=== PATIENT | male | born 1985 | race Caucasian/White ===

== ENCOUNTER 2020-11-30 07:44 | Emergency (ER) | payer OTHER ==
[2020-11-30 07:48] VITALS: BP 109/66; PULSE 60; BMI 28.3
[2020-11-30 07:49] VITALS: TEMP 98
== END 2020-11-30 08:06 | disposition home or self-care (01) ==
LOC: JER 07:44
DX: H10.32 Unspecified acute conjunctivitis, left eye (principal)
CPT/HCPCS: 99283-25

== ENCOUNTER 2022-03-08 14:48 | Emergency (ER) | payer OTHER ==
[2022-03-08 15:02] VITALS: BP 119/75; PULSE 77; TEMP 98.1; BMI 28.9
[2022-03-08] MEDS ORDERED: MAG HYDROX/AL HYDROX/SIMETH 30 ML UNIT-DOSE CUP PO ONE (16:56)
[2022-03-08] MEDS ORDERED: FAMOTIDINE 20 MG TABLET PO ONE (16:56)
[2022-03-08] MEDS ORDERED: PANTOPRAZOLE SODIUM 40 MG VIAL IVPUSH ONE (16:56)
[2022-03-08] MEDS ORDERED: MAG HYDROX/AL HYDROX/SIMETH 30 ML UNIT-DOSE CUP ONE (18:14)
[2022-03-08] MEDS ORDERED: PANTOPRAZOLE SODIUM 40 MG/100 ML BAG IVPB ONE (18:14)
[2022-03-08] MEDS ORDERED: FAMOTIDINE 20 MG TABLET ONE (18:14)
[2022-03-08 18:18] LABS: BASO % 0.6 % (0-2.0); HEMATOCRIT 43.2 % (35.4-49); HEMOGLOBIN 14.5 GM/dL (11.7-16.9); LYMPH % 37.8 % (8-40); MCH 31.9 pg (25.7-33.7); MCHC 33.5 g/dl (32.0-35.9); MEAN CELL VOLUME 95.2 fl (80-96); MEAN PLT VOLUME 8.1 fl (7.5-11.1); MONO % 9.9 % (3.8-10.2); NEUT % 48.7 % (42.8-82.8); PLATELET COUNT 265 10^3/uL (134-434); RBC 4.54 M/mm3 (4.00-5.60); RDW 13.5 % (11.9-15.9)
[2022-03-08 18:24] LABS: INR 1.02 (0.83-1.09); PROTHROMBIN TIME (PATIENT) 11.7 SEC (9.7-13.0)
[2022-03-08 18:41] LABS: ALBUMIN 4.3 g/dl (3.4-5.0); BLOOD UREA NITROGEN 21.1 mg/dL (7-18); CALCIUM 9.3 mg/dL (8.5-10.1)
[2022-03-08 18:46] LABS: BILIRUBIN,TOTAL 0.7 mg/dL (0.2-1); TOT PROT 7.8 g/dl (6.4-8.2)
== END 2022-03-08 20:21 | disposition home or self-care (01) ==
LOC: JER 14:48
PROC: 3E033GC Introduction of Other Therapeutic Substance into Peripheral Vein, Percutaneous Approach (ICD-10-PCS; principal; 2022-03-08)
DX: K21.9 Gastro-esophageal reflux disease without esophagitis (principal)
CPT/HCPCS: 36415; 71046-TC-FY; 80053; 82272; 83690; 85025; 85610; 96374; 99284-25

== ENCOUNTER 2023-10-22 07:02 | Emergency (ER) | payer OTHER ==
[2023-10-22 07:25] VITALS: BP 113/75; PULSE 82; RESP 18; TEMP 97.5; BMI 27.4
== END 2023-10-22 08:25 | disposition home or self-care (01) ==
LOC: JER 07:02
DX: H10.33 Unspecified acute conjunctivitis, bilateral (principal); H57.89 Other specified disorders of eye and adnexa
CPT/HCPCS: 99283-25